=== PATIENT | male | born 1965 | race African-American/Black ===

== ENCOUNTER 2019-08-17 13:38 | Emergency (ER) | payer OTHER ==
[2019-08-17 13:50] VITALS: BP 146/73
--- NOTE | 2019-08-17 13:55 | UC ---
Hand/Wrist HPI - HPI Summary HPI Summary: Patient is a 53yo male presenting with right wrist and thumb pain x 2 weeks. 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 States the pain started two weeks ago and has progressively gotten worse. Denies pain at rest. Denies left hand pain. Patient is right hand dominant. Describes pain as "pins and needles." Denies shooting pain. Denies radiation of pain. Denies taking any medications for pain relief. Denies prior injury to wrist or hand. Denies decreased strength. Denies trauma to right hand. - History Of Current Complaint Chief Complaint: UCUpperExtremity Stated Complaint: WRIST INJURY Time Seen by Provider: 08/17/19 13:45 Hx Obtained From: Patient Onset/Duration: Gradual Onset, Lasting Weeks Severity Initially: Mild Severity Currently: Severe Pain Intensity: 15 Pain Scale Used: 0-10 Numeric Aggravating Factor(s): Movement, Lifting, Flexion, Extension, Abduction, Other - gripping Alleviating Factor(s): Rest Associated Signs And Symptoms: Positive: Numbness/Tingling. Negative: Swelling , Redness, Bruising, Weakness Related History: Dominant Hand Right - Allergies/Home Medications Allergies/Adverse Reactions: Allergies Allergy/AdvReac Type Severity Reaction Status Date / Time iodine Allergy Anaphylatic Verified 08/17/19 13:50 Shock shellfish derived Allergy Anaphylatic Verified 08/17/19 13:50 Shock PMH/Surg Hx/FS Hx/Imm Hx Previously Healthy: Yes Other History Of: Negative For: Anticoagulant Therapy - Surgical History Surgical History: Yes Surgery Procedure, Year, and Place: hernia repair at - Family History Known Family History: Positive: Hypertension, Diabetes Negative: Cardiac Disease - Social History Alcohol Use: Daily Alcohol Amount: 1-2 beer daily Substance Use Type: Marijuana Smoking Status (MU): Light Every Day Tobacco Smoker Review of Systems All Other Systems Reviewed And Are Negative: Yes Constitutional: Positive: Negative Skin: Positive: Negative. Negative: Rash, Bruising Respiratory: Positive: Negative Cardiovascular: Positive: Negative Gastrointestinal: Positive: Negative Motor: Negative: Decreased ROM, Weakness Neurovascular: Negative: Decreased Sensation, Decreased Pulses Musculoskeletal: Positive: Arthralgia. Negative: Decreased ROM, Edema Neurological: Positive: Paresthesia. Negative: Headache, Weakness Psychological: Positive: Negative Physical Exam Triage Information Reviewed: Yes Appearance: Well-Appearing, No Pain Distress, Well-Nourished Vital Signs: Initial Vital Signs Temp 98 F 08/17/19 13:46 Pulse 62 08/17/19 13:46 Resp 16 08/17/19 13:46 BP 146/73 08/17/19 13:46 Pulse Ox 100 08/17/19 13:46 Eyes: Positive: Conjunctiva Clear ENT: Positive: Hearing grossly normal Neck: Positive: Supple Respiratory: Positive: Lungs clear, No respiratory distress Cardiovascular Exam: Normal Cardiovascular: Positive: RRR, Pulses Normal, Brisk Capillary Refill Musculoskeletal: Positive: Strength Intact, ROM Intact, No Edema, Other: - no tenderness to palpation of right wrist or hand. fabio test positive. phalen and tinel tests negative. Neurological: Positive: Alert Psychological Exam: Normal Psychological: Positive: Age Appropriate Behavior Hand/Wrist Course/Dx - Course Course Of Treatment: Discussed with patient that his PE findings indicated De Quervain Tenosynovitis as the likely cause of his symptoms. Patient advised to rest his hand as much as possible. Instructed to use thumb spica splint while working and to take ibuprofen as directed for pain relief. Told he may also ice and use heat for pain relief. Directed patient to follow up with the orthopedic referral if pain persists or worsens. Also discussed patient's elevated blood pressure today and instructed him to follow up with the [facility] within the next week for further evaluation. Patient voiced understanding and agreed to the treatment plan. - Differential Dx/Diagnosis Provider Diagnosis: De Quervain's disease (tenosynovitis) Discharge ED - Sign-Out/Discharge Documenting (check all that apply): Patient Departure All imaging exams completed and their final reports reviewed: No Studies - Discharge Plan Condition: Stable Disposition: HOME Patient Education Materials: De Quervain Disease (ED) Forms: *Work Release Referrals: [facility] [Outside] - 7 Days Luis Pavon MD [Medical Doctor] - If Needed Additional Instructions: As discussed, use the splint while working to help decrease your symptoms. You may also take ibuprofen as directed for pain relief. Rest your wrist and hand as much as possible. Ice and/or heat may also provide some relief. If symptoms persist or worsen, follow up with the orthopedic referral listed below. You also had an elevated blood pressure today. Follow up with the [facility] within the next week for further evaluation of your blood pressure. - Billing Disposition and Condition Condition: STABLE Disposition: Home
== END 2019-08-17 14:34 | disposition home or self-care (01) ==
LOC: UCEAST 13:38
DX: M65.4 Radial styloid tenosynovitis [de Quervain] (principal); F17.210 Nicotine dependence, cigarettes, uncomplicated
CPT/HCPCS: 99212; G0463